=== PATIENT | male | born 1945 | race Caucasian/White ===

== ENCOUNTER 2017-02-28 12:09 | Emergency (ER) | payer MEDICARE, OTHER ==
[2017-02-28 13:33] LABS: PTT 24.9 SEC (22.9-36.1); Prothrombin Time 13.7 SEC (12.0-14.7)
[2017-02-28 13:35] LABS: #Basophils 0.1 thou/uL (0.0-0.2); #Eosinphils 0.2 thou/uL (0.0-0.7); #Lymphocytes 1.8 thou/uL (1.20-3.40); #Monocytes 0.6 thou/uL (0.11-0.59); #Neutrophils 5.5 thou/uL (1.40-6.50); %Basophils 1.4 % (0.0-1.0); %Eosinophils 2.1 % (0.0-10.0); %Lymphocytes 21.9 % (21.0-51.0); %Monocytes 7.2 % (0.0-10.0); %Neutrophils 67.5 % (42.0-75.0); Hemoglobin 15.1 g/dL (14.0-18.0); Mean Corpuscular HGB CONC 33.4 g/dL (32.0-36.0); Mean Corpuscular Hemoglobin 31.6 pg (27.0-31.0); Mean Corpuscular Volume 94.5 fl (80.0-94.0); Mean Platelet Volume 10.3 fL (7.4-10.4); Platelet Count 113 thou/uL (130-400); RBC Distribution Width 12.2 % (11.5-14.5); Red Blood Cell (RBC) Count 4.78 mill/uL (4.70-6.10); White Blood Cell (WBC) Count 8.1 thou/uL (4.8-10.8)
[2017-02-28 13:42] LABS: Bilirubin Negative (Negative); Blood, Urine Trace (Negative); Clarity Clear (Clear); Glucose, Urine (Dipstick) Negative (Negative); Leukocyte Negative (Negative); Nitrite Negative (Negative); Protein, Urine (Dipstick) > or equal to 300 mg/dL (Neg-Trace); Urobilinogen 0.2 mg/dL (0.2-1.0)
[2017-02-28 13:44] LABS: ALT (SGPT) 69 U/L (8-55); AST (SGOT) 46 U/L (5-34); Albumin 4.1 g/dL (3.4-4.8); Alkaline Phosphatase 83 U/L (40-150); Anion Gap 16 mmol/L (10-20); BUN (Urea Nitrogen) 13 mg/dL (8.4-25.7); Bilirubin, Total 0.5 mg/dL (0.2-1.2); CK (CPK) 63 U/L (30-200); Calc. Creatinine Clearance 0 mL/min (70-130); Carbon Dioxide 24 mmol/L (23-31); Chloride 108 mmol/L (98-107); Estimated GFR-MDRD 64; Globulin 2.7 g/dL (2.4-3.5); Glucose 136 mg/dL (80-115); Potassium 4.6 mmol/L (3.5-5.1); Protein, Total 6.8 g/dL (5.8-8.1); Sodium 143 mmol/L (136-145)
[2017-02-28 13:46] LABS: CKMB 1.9 ng/mL (0-6.6); Troponin I 0.023 ng/mL (< 0.028)
[2017-02-28 13:47] LABS: Specific Gravity, Urine 1.017 (1.002-1.036)
[2017-02-28 13:48] LABS: RBC/HPF 0-3 HPF (0-3); Squamous Epithelial 0-3 HPF (0-3); WBC/HPF 0-3 HPF (0-3); Yeast-All Forms Rare HPF (None Seen)
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
--- NOTE | 2017-02-28 14:12 | RAD ---
PORTABLE CHEST ONE VIEW: 02/28/2017 1:31 p.m. HISTORY: Shortness of breath and syncope. FINDINGS: The heart size is borderline. A left-sided pacemaker device is present. The lungs are well expanded without focal areas of consolidation, pneumothorax, james pulmonary edema, or pleural effusions. IMPRESSION: No radiographic evidence of acute cardiopulmonary process. POS: [facility]
== END 2017-02-28 15:05 | disposition home or self-care (01) ==
LOC: MADERS 12:09
DX: R55 Syncope and collapse (principal); R06.00 Dyspnea, unspecified; F43.10 Post-traumatic stress disorder, unspecified; I10 Essential (primary) hypertension
CPT/HCPCS: 70450; 71010; 80053; 81001; 82550; 82553; 83880; 84484; 85025; 85610; 85730; 87086; 93005; 94760

== ENCOUNTER 2023-01-22 16:38 | Emergency (ER) | payer MEDICARE, OTHER ==
[2023-01-22] MEDS ORDERED: Dicyclomine 20 MG/2 ML VIAL ONE (17:36)
[2023-01-22 18:04] LABS: #Lymphocytes 0.5 thou/uL (1.20-3.40); #Monocytes 0.5 thou/uL (0.11-0.59); #Neutrophils 6.9 thou/uL (1.40-6.50); %Basophils 0.5 % (0.0-1.0); %Eosinophils 0.2 % (0.0-10.0); %Lymphocytes 6.8 % (21.0-51.0); %Monocytes 5.7 % (0.0-10.0); %Neutrophils 86.8 % (42.0-75.0); ALT (SGPT) 12 U/L (8-55); AST (SGOT) 14 U/L (5-34); Albumin 3.3 g/dL (3.4-4.8); Alkaline Phosphatase 56 U/L (40-110); Anion Gap 15 mmol/L (10-20); Anisocytosis SLIGHT = 6-15 cells (100X) (0-5/hpf); BUN (Urea Nitrogen) 11 mg/dL (8.4-25.7); Bilirubin, Total 0.3 mg/dL (0.2-1.2); Calc. Creatinine Clearance 0 mL/min (70-130); Calcium 7.8 mg/dL (7.8-10.44); Carbon Dioxide 22 mmol/L (23-31); Chloride 104 mmol/L (98-107); Estimated GFR 97; Giant Platelets SLIGHT HPF (0-5); Globulin 2.6 g/dL (2.4-3.5); Glucose 97 mg/dL (83-110); Hematocrit 31.2 % (42.0-52.0); Hemoglobin 9.2 g/dL (14.0-18.0); Hypochromia SLIGHT = 6-15 cells (100X) (0-5/hpf); Lipase 54 U/L (8-78); MDiff Complete? YES; Magnesium 1.9 mg/dL (1.6-2.6); Mean Corpuscular HGB CONC 29.6 g/dL (32.0-36.0); Mean Corpuscular Hemoglobin 25.1 pg (27.0-31.0); Mean Corpuscular Volume 84.8 fl (78.0-98.0); Mean Platelet Volume 12.9 fL (7.4-10.4); Platelet Count 24 10x3/uL (130-400); Polychromasia MODERATE = 3-4 cells (100X) (0-2/hpf); Potassium 3.6 mmol/L (3.5-5.1); Protein, Total 5.9 g/dL (5.8-8.1); RBC Distribution Width 16.7 % (11.5-14.5); Red Blood Cell (RBC) Count 3.68 mill/uL (4.70-6.10); Sodium 137 mmol/L (136-145); White Blood Cell (WBC) Count 7.9 10x3/uL (4.8-10.8)
[2023-01-22 18:05] LABS: Platelet Adequacy Comment Appears Decreased
[2023-01-22 18:19] LABS: Bilirubin Negative (Negative); Blood, Urine Negative (Negative); Glucose, Urine (Dipstick) Negative (Negative); Ketone, Urine Negative (Negative); Leukocyte Small (Negative); Nitrite Positive (Negative); Protein, Urine (Dipstick) Trace mg/dL (Neg-Trace); Urobilinogen 0.2 mg/dL (Less than 2)
[2023-01-22 18:21] LABS: Clarity Cloudy (Clear)
[2023-01-22 18:25] LABS: CAUTI Indications for Culture Dysuria,urgency,freq; RBC/HPF None Seen HPF (0-3); Squamous Epithelial 0-3 HPF (0-3)
[2023-01-22 18:26] LABS: Bacteria/HPF 3+ HPF (None Seen); Calcium Oxalate Crystals Rare HPF (None Seen); Urine Culture Reflex Yes Yes
[2023-01-22] MEDS ORDERED: cefTRIAXone (ROCEPHIN) 2 GM VIAL ONE (18:44)
[2023-01-22] MEDS ORDERED: Sodium Chloride 0.9% 100 ML ONE (18:44)
[2023-01-22] MEDS ORDERED: Furosemide 20 MG/2 ML VIAL ONE (21:16)
== END 2023-01-22 21:36 | disposition home or self-care (01) ==
LOC: MADERS 16:38
DX: K74.60 Unspecified cirrhosis of liver (principal); K52.9 Noninfective gastroenteritis and colitis, unspecified; D69.6 Thrombocytopenia, unspecified; N39.0 Urinary tract infection, site not specified; I10 Essential (primary) hypertension; Z79.899 Other long term (current) drug therapy
CPT/HCPCS: 74022; 74177; 80053; 81001; 83605; 83690; 83735; 85025; 87077; 87086; 87186; 94760; 96365; 96372; 96375; J0696; J1940